=== PATIENT | female | born 1940 | race African-American/Black ===

== ENCOUNTER 2016-12-12 09:28 | Emergency (ER) | payer OTHER, BC ==
[~2016-12-12] VITALS: Ht 167.6 cm; Wt 72.6 kg
[2016-12-12 09:28] VITALS: BP 140/65
[~2016-12-12 09:28] MED LIST: ADULT LOW DOSE81 MG PO; AMARYL4 MG PO; BENAZEPRIL-HCT1 EAC1 PO; GLUCOPHAGE XR500 MG PO; LIPITOR10 MG PO; PREDNISONE 20 M20 MG PO
[2016-12-12] MEDS ORDERED: NORFLEX100 MG PO (09:46)
[2016-12-12] MEDS ORDERED: MOBIC7.5 MG PO (09:46)
[2016-12-13] MEDS ORDERED: VALIUM5 MG PO (08:22)
[2016-12-13] MEDS ORDERED: PREDNISONE 20 M20 MG PO (08:22)
[2016-12-15] MEDS ORDERED: NORVASC5 MG PO (12:28)
[2016-12-15] MEDS ORDERED: GLUCOPHAGE XR500 MG PO (18:39)
== END 2016-12-12 10:20 | disposition home or self-care (01) ==
LOC: ER 09:28
DX: M43.6 Torticollis (principal); I10 Essential (primary) hypertension; E11.9 Type 2 diabetes mellitus without complications; F17.210 Nicotine dependence, cigarettes, uncomplicated